=== PATIENT | male | born 1980 | race American Indian/Alaskan Native ===

== ENCOUNTER 2017-07-25 18:52 | Emergency (ER) | payer SELFPAY ==
--- NOTE | 2017-07-25 23:56 | Emergency Department Report ---
HPI - General Chief Complaint: Dental/Oral Time Seen by Provider: 07/25/17 22:00 - HPI HPI: Patient reports that he has dental issues and right lower back tooth cavity. He said his cause this right jaw to swell. He states that he doesn't have any dentist. Pain is 10 out of 10 and achy for movement and chewing better without movement. Denies any fever or chills. Denies any sore throat or drooling. Denies any headache. Denies any difficulty swallowing. ED Past Medical Hx - Past Medical History Previous Medical History?: No - Surgical History Past Surgical History?: No - Family History Family history: no significant - Social History Smoking Status: Current Every Day Smoker Substance Use Type: None ED Review of Systems ROS: Stated complaint: MOUTH SWELLING ETC Other details as noted in HPI Comment: All other systems reviewed and negative Constitutional: no symptoms reported ENT: dental pain. denies: throat pain, epistaxis, congestion Respiratory: no symptoms reported Cardiovascular: denies: chest pain, palpitations, edema, syncope Gastrointestinal: denies: nausea, vomiting Musculoskeletal: denies: back pain, arthralgia, myalgia Skin: denies: rash Neurological: denies: headache, numbness, paresthesias, abnormal gait, vertigo Physical Exam - Physical Exam Vital Signs: Vital Signs 07/25/17 19:00 Temperature 98.4 F Pulse Rate 83 Respiratory 16 Rate Blood Pressure 139/81 O2 Sat by Pulse 100 Oximetry General: This is a 37-year-old male well-nourished well-developed in no acute distress. Physical Exam: Head: Normocephalic atraumatic Ears:BIateral TM pearly morris. Oral EAC without any redness or swelling., NO DRAINAGE. No mastoid bone tenderness. Mouth: Moist, no pharyngeal erythema or exudate . No tonsillar erythema or exudate. UVULA midline and oral airways patent. Patient with multiple cavities. No induration or cellulitic area noted but tenderness to palpate to tooth #32. No facial swelling noted. Neck: Nontender to palpate, supple, normal range of motion. No adenopathy. No c- spine tenderness. Nose: Bilateral nasal mucosa normal .maxillary and frontal sinuses nontender to palpate. Eyes: Sclerae and conjunctiva without injection. Bilateral pupils equal and reactive to light. Bilateral lids are normal. Normal accommodation.BEOMI Lungs: Clear to auscultate bilaterally, no rhonchi wheezes or rales. Normal work of breathing and no chest wall tenderness CV: S1, S2. Regular rate and rhythm negative murmur. Capillary refill is less than 3 seconds Skin: Clean dry and intact, no rashes or lesions Psych: Normal mood and behavior ED Course Vital Signs 07/25/17 19:00 Temperature 98.4 F Pulse Rate 83 Respiratory 16 Rate Blood Pressure 139/81 O2 Sat by Pulse 100 Oximetry - Reevaluation(s) Reevaluation #1: 07/25/17 22:15 Nurse informed me that he went to give patient a discharge instruction paperwork and patient had left. 07/26/17 04:30 ED Medical Decision Making - Medical Decision Making ED course: PT here for toothache and physical finding for gingivitis, dental caries. I discussed the patient that I'll refer him to [facility] for management of dental caries and gingivitis and in the meantime I'll put him on pain medication and antibiotics. I discussed with him that he needs to call [facility] dental clinic in the morning and schedule an appointment for visit. He voices understanding. Patient will be discharged from the emergency room and prescription for penicillin and Motrin. Critical care attestation.: If time is entered above; I have spent that time in minutes in the direct care of this critically ill patient, excluding procedure time. ED Disposition Clinical Impression: Dental caries, Tooth ache, Gingivitis Disposition: Z-07 ELOPED Is pt being admited?: No Does the pt Need Aspirin: No Condition: Stable Referrals: PRIMARY CARE, [Primary Care Provider] - 3-5 Days
[2017-07-26 11:29] VITALS: BP 139/81
== END 2017-07-26 04:33 | disposition left against medical advice (07) ==
LOC: ED 18:52
DX: K02.9 Dental caries, unspecified (principal); K05.10 Chronic gingivitis, plaque induced; F17.210 Nicotine dependence, cigarettes, uncomplicated
CPT/HCPCS: 99281

== ENCOUNTER 2020-07-26 07:48 | Emergency (ER) | payer SELFPAY ==
[2020-07-26 08:02] VITALS: BP 132/67
[2020-07-26] MEDS ORDERED: KETOROLAC 30 MG/1 ML INJ IM ONE (09:36)
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
== END 2020-07-26 10:37 | disposition home or self-care (01) ==
LOC: ED 07:48
DX: S16.1XXA Strain of muscle, fascia and tendon at neck level, initial encounter (principal); S49.91XA Unspecified injury of right shoulder and upper arm, initial encounter; S39.012A Strain of muscle, fascia and tendon of lower back, initial encounter; F17.200 Nicotine dependence, unspecified, uncomplicated; Z98.890 Other specified postprocedural states; Z79.899 Other long term (current) drug therapy; V49.49XA Driver injured in collision with other motor vehicles in traffic accident, initial encounter; Y92.410 Unspecified street and highway as the place of occurrence of the external cause; Y93.89 Activity, other specified; Y99.8 Other external cause status
CPT/HCPCS: 96372; 99282; J1885